=== PATIENT | female | born 1940 | race Caucasian/White ===

== ENCOUNTER 2016-05-27 22:57 | Inpatient (IN) | payer MEDICARE, MEDICAID ==
[2016-05-27 23:48] LABS: % BASOPHILS 0.9 % (0.0-2.0); % EOSINOPHILS 3.2 % (0.0-5.0); % LYMPHOCYTES 49.6 % (20.0-50.0); % MONOCYTES 13.1 % (2.0-10.0); % NEUTROPHILS 33.2 % (40.0-80.0); HEMATOCRIT 35.9 % (35.0-45.0); HEMOGLOBIN 11.7 gm/dL (11.7-16.1); MEAN CELL VOLUME 78.1 fl (81-100); MEAN CORPUSCULAR HEMOGLOBIN 25.5 pg (27.0-31.0); MEAN CORPUSCULAR HGB CONC 32.7 pg (28.0-36.0); MEAN PLATELET VOLUME 9.1 fl; NEUTROPHILE ABSOLUTE 2.5 Th/cmm (1.8-8.0); PLATELET COUNT 230 Th/cmm (150-400); RED CELL DISTRIBUTION WIDTH 19.7 % (11.5-20.0); WHITE BLOOD COUNT 7.6 Th/cmm (4.8-10.8)
--- NOTE | 2016-05-27 23:51 | ED Physician Chart ---
Chief Complaint/HPI - Patient Information Date Seen:: 05/27/16 Time Seen:: 23:48 Chief Complaint:: agitation History of Present Illness:: pt sent from md for agitation/aggressive behavior. per staff she is yelling and verbally abusive. talking continuously and pacing around nonstop. has paranoia. pt is alert and talking (very much but hard to understand) but is poor historian. pt has pacemaker. no recent palpitations or chest pain or sob. no fever. no recent illness. no curent pain. Allergies:: Allergies Allergy/AdvReac Type Severity Reaction Status Date / Time Penicillins [PCN] Allergy Verified 05/27/16 23:11 Vitals:: Vital Signs - 8 hr 05/27/16 23:00 Temp 97.9 F HR 62 RR 18 BP 135/65 O2 Sat % 95 Historian:: Patient, Medical Records Review:: Transfer documents Reviewed Review of Systems - Review of Systems General/Constitutional: No fever, No chills, No weight loss, No weakness, No diaphoresis, No edema, No loss of appetite Skin: No skin lesions, No rash, No bruising Head: No headache, No light-headedness Eyes: No loss of vision, No pain, No diplopia ENT: No earache, No nasal drainage, No sore throat, No tinnitus Neck: No neck pain, No swelling, No thyromegaly, No stiffness, No mass noted Cardio Vascular: No chest pain, No palpitations, No PND, No orthopnea, No edema Pulmonary: No SOB, No cough, No sputum, No wheezing GI: No nausea, No vomiting, No diarrhea, No pain, No melena, No hematochezia, No constipation, No hematemesis G/U: No dysuria, No frequency, No hematuria Musculoskeletal: No bone or joint pain, No back pain, No muscle pain Endocrine: No polyuria, No polydipsia Psychiatric: Prior psych history, No depression, No anxiety, No suicidal ideation, Other (agression) Hematopoietic: No bruising, No lymphadenopathy Allergic/Immuno: No urticaria, No angioedema Neurological: No syncope, No focal symptoms, No weakness, No paresthesia, No headache, No seizure, No dizziness, No vertigo Past Medical History - Past Medical History Past Medical History: HTN, Dyslipidemia, Other (pacemaker, anemia) Social History: Care Facility Surgical History: Pacemaker Psychiatricy History: Depression, Bipolar Medication: Reviewed Family Medical History - Family Member Mother History Unknown: Yes Physical Exam - Physical Examination General/Constitutional: Awake, Well-developed, well-nourished, Alert, No distress, GCS 15, Non-toxic appearing, Ambulatory Head: Atraumatic Eyes: Lids, conjuctiva normal, PERRL, EOMI Skin: Nl inspection, No skin lesions, No ecchymosis, Well hydrated, No lymphadenopathy Other Skin comments:: skin all over has thickened scarred appearance./..no current inflammation but unclear cause ENMT: External ears, nose nl, Nasal exam nl, Lips, teeth, gums nl Neck: Nontender, Full ROM w/o pain, No JVD, No nuchal rigidity, No bruit, No mass, No stridor Respiratory: Nl effort/Exclusion, Clear to Auscultation, No Wheeze/Rhonchi/Rales Cardio Vascular: RRR, No murmur, gallop, rubs, NL S1 S2 GI: No tenderness/rebounding/guarding, No organomegaly, No hernia, Normal BS's, Nondistended, No mass/bruits, No McBurney tenderness : No CVA tenderness Extremities: No tenderness or effusion, Full ROM, normal strength in all extremities, No edema, Normal digits & nails Neuro/Psych: Alert/oriented, DTR's symmetric, Normal sensory exam, Normal motor strength, Judgement/insight normal, Mood normal, Normal gait, No focal deficits Misc: normal gait, Normal back, No paraspinal tenderness Labs/Radiology/EKG Results - Lab Results Results: Laboratory Tests 05/27/16 05/27/16 05/27/16 23:10 23:35 23:35 WBC 7.6 RBC 4.60 Hgb 11.7 Hct 35.9 MCV 78.1 L MCH 25.5 L MCHC Differential 32.7 RDW 19.7 Plt Count 230 MPV 9.1 Neutrophils % 33.2 L Lymphocytes % 49.6 Monocytes % 13.1 H Eosinophils % 3.2 Basophils % 0.9 ESR Sodium 134 L Potassium 3.9 Chloride 98 Carbon Dioxide 28.6 Anion Gap 11.3 BUN 19 Creatinine 0.9 Est GFR ( Amer) TNP Est GFR (Non-Af Amer) TNP BUN/Creatinine Ratio 21.1 Glucose 112 H Calcium 9.4 Total Bilirubin 0.3 AST 19 ALT 13 Alkaline Phosphatase 83 Total Protein 7.3 Albumin 4.2 Globulin 3.1 Albumin/Globulin Ratio 1.4 Urine Source [place] Urine Color YELLOW Urine Clarity CLEAR Urine pH 6.0 Ur Specific [place] 1.020 Urine Protein NEGATIVE Urine Glucose (UA) NEGATIVE Urine Ketones NEGATIVE Urine Blood TRACE Urine Nitrate NEGATIVE Urine Bilirubin NEGATIVE Urine Urobilinogen 0.2 Ur Leukocyte Esterase TRACE H Urine RBC 2-5 Urine WBC 2-5 Ur Epithelial Cells NONE SEEN Urine Bacteria NONE SEEN Valproic Acid 05/27/16 05/27/16 23:35 23:59 WBC RBC Hgb Hct MCV MCH MCHC Differential RDW Plt Count MPV Neutrophils % Lymphocytes % Monocytes % Eosinophils % Basophils % ESR 10 Sodium Potassium Chloride Carbon Dioxide Anion Gap BUN Creatinine Est GFR ( Amer) Est GFR (Non-Af Amer) BUN/Creatinine Ratio Glucose Calcium Total Bilirubin AST ALT Alkaline Phosphatase Total Protein Albumin Globulin Albumin/Globulin Ratio Urine Source Urine Color Urine Clarity Urine pH Ur Specific [place] Urine Protein Urine Glucose (UA) Urine Ketones Urine Blood Urine Nitrate Urine Bilirubin Urine Urobilinogen Ur Leukocyte Esterase Urine RBC Urine WBC Ur Epithelial Cells Urine Bacteria Valproic Acid 80.2 - EKG Interpretations EKG Time:: 23:35 Rhythm: atial paced [place]: 42 Rate: 76 Comments:: nrml st/t waves. ED Septic Shock - . Is Septic Shock (SBP<90, OR Lactate>4 mmol\L) present?: No - <6hrs of presentation: Vital Signs: Vital Signs - 8 hr 05/27/16 23:00 Temp 97.9 F HR 62 RR 18 BP 135/65 O2 Sat % 95 Reassessment (Disposition) - Reassessment Reassessment:: macrobid 100 mg po x 1 for uti Reassessment Condition:: Unchanged, Improved - Diagnosis Diagnosis:: 1 aggressive behavior 2 possible uti - Patient Disposition Admitted to:: [facility] Condition at Disposition:: Improved
[2016-05-27 23:57] LABS: URINE BILIRUBIN NEGATIVE (NEGATIVE); URINE BLOOD TRACE (NEGATIVE); URINE COLOR YELLOW; URINE GLUCOSE (UA) NEGATIVE (NEGATIVE); URINE KETONE NEGATIVE (NEGATIVE)
[2016-05-27 23:58] LABS: URINE BACTERIA NONE SEEN /hpf (NONE SEEN); URINE EPITHELIAL CELLS NONE SEEN /lpf (FEW); URINE PROTEIN NEGATIVE (NEGATIVE); URINE UROBILINOGEN 0.2 E.U./dL (0.2 - 1.0)
[2016-05-28 00:22] LABS: ALB/GLOB RATIO 1.4 (1.0-1.8); ALKALINE PHOSPHATASE 83 U/L (34-104); ANION GAP 11.3 (7.0-16.0); BILIRUBIN,TOTAL 0.3 mg/dL (0.3-1.0); BUN - UREA NITROGEN 19 mg/dL (7-25); BUN/CREATININE RATIO 21.1; CALCIUM SERUM 9.4 mg/dL (8.6-10.3); CARBON DIOXIDE 28.6 mEq/L (21.0-31.0); CHLORIDE 98 mEq/L (98-107); CREATININE - SERUM 0.9 mg/dL (0.6-1.2); GLUCOSE 112 mg/dL (70-105); POTASSIUM SERUM 3.9 mEq/L (3.5-5.1); SGOT 19 U/L (13-39); SGPT/ALT 13 U/L (7-52); SODIUM SERUM 134 mEq/L (136-145)
[2016-05-28 04:54] VITALS: BP 128/78
[2016-05-28] MEDS ORDERED: Maalox 30 mL Cup PO PRN (04:56)
[2016-05-28] MEDS ORDERED: Magnesium Hydroxide (MOM) 30 mL UDC PO PRN (05:00)
[2016-05-28] MEDS: Aspirin 81mg Chewable Tab PO SCH (09:02)
[2016-05-28] MEDS: Ferrous Sulfate 325 MG TAB PO SCH (09:02)
[2016-05-28] MEDS: Multivitamin Tab PO SCH (09:03)
--- NOTE | 2016-05-29 01:17 | Psychosocial Evaluation ---
CHIEF COMPLAINT: "Why am I in the hospital?" HISTORY OF PRESENT ILLNESS: The patient is a 76-year-old female with a history of bipolar disorder, was sent from a residential facility for increased agitation, paranoia, yelling episodes, has not been sleeping well. The patient has been taking her medications most of the time. The patient states she is upset because she is in a psychiatric hospital, but she acknowledges that she has been having episodes of anxiety and she admits that she has racing thoughts. PAST PSYCHIATRIC HISTORY: Bipolar disorder, multiple psychiatric hospitalizations. PAST MEDICAL HISTORY: As per H and P. PSYCHOSOCIAL HISTORY: The patient resides in a residential facility and requires complete care. MENTAL STATUS EXAMINATION: The patient was sitting in a chair. Her speech was fast and pressured. She has obvious psychomotor restlessness. The patient appears to be guarded and paranoid, but she has no auditory hallucinations. She is oriented to time, place and person, does not appear to have any cognitive impairment, but her insight is somewhat limited. PATIENT'S STRENGTH: The patient is passively accepting treatment. PATIENT'S WEAKNESS: Lack of insight. ASSESSMENT: Bipolar disorder, manic with psychosis. MEDICAL: As per medical history and History and Physical. PLAN: We will admit the patient for hospitalization. We will start individual and group therapy, assess psychopharmacological intervention. ESTIMATED LENGTH OF STAY: 7 days. CRITERIA FOR DISCHARGE: Improved condition, no agitation, hopefully no paranoia and safe disposition and outpatient treatment plan. [facility]# [id number]
--- NOTE | 2016-05-29 06:38 | Consultation ---
INTERNAL MEDICINE CONSULT REFERRING PHYSICIAN: Dr. Huizar. REASON FOR CONSULT: Medical management of hypertension, CAD, anemia. HISTORY OF PRESENT ILLNESS: This is a 76-year-old female, who has a history of CAD, status post stent placement, history of arrhythmia, status post pacemaker placement, hypertension, anemia, psych disorder/bipolar disorder, who was transferred from [facility] to the ER secondary to increased agitation and verbal abusiveness. The patient has been admitted to [facility] for further management and care. The patient is somewhat of a poor historian, but denies any chest pain, any shortness of breath, any palpitations, any fever, chills, or any UTI symptomatology. Pertinent findings in ER include a mild UTI. PAST MEDICAL HISTORY: As noted above. PAST SURGICAL HISTORY: She apparently has had 2 pacemaker placements, but could not remember the dates. She also states that she had 2 stent placements and also could not remember the year of placement, as above. FAMILY HISTORY: Likely noncontributory. SOCIAL HISTORY: Denies any tobacco, ETOH, or illicit drug usage. Lives in a residential facility. ALLERGIES: ALLERGIC TO PENICILLINS. HOME MEDICATIONS: Tylenol 325 q. 4 p.r.n., aspirin 81 every day, bisacodyl 10 mg every day per rectum for constipation, Depakote 500 mg every day, docusate sodium 100 mg every day, iron sulfate 325 mg every day, Ativan 0.5 q. 6 p.r.n. for anxiety, losartan/hydrochlorothiazide 100/25 every day, milk of magnesia p.r.n. for GI upset, Seroquel 25 b.i.d., simvastatin 40 q. p.m. REVIEW OF SYSTEMS: CONSTITUTIONAL: She denies any fever or chills. CARDIOVASCULAR: No chest pain, no palpitations. PULMONARY: No cough, no phlegm production, no shortness of breath. GASTROINTESTINAL: No bowel habit changes. GENITOURINARY: No bladder habit changes including no dysuria or hematuria. NEUROLOGIC: No changes in vision, no syncope, no headaches. PHYSICAL EXAMINATION: VITAL SIGNS: Temperature 98.0, pulse 76, BP 128/78, respirations 20, satting 99% on room air. GENERAL: She is a well-developed, moderately obese female, lying in bed. She is asleep, but arousable, awake, alert and oriented x 2, able to answer simple questions appropriately. HEAD AND NECK: Normocephalic, atraumatic. Pupils are reactive to light. CARDIAC: Regular rate and rhythm with distant sounds. LUNGS: Clear to auscultation bilaterally. ABDOMEN: Soft, supple, nontender, nondistended, normoactive bowel sounds. EXTREMITIES: Lower extremities: No pedal edema. NEUROLOGIC: Grossly intact, although full exam cannot be done at this time. LABORATORY DATA: H and H with an MCV of 78, white count 7.6. Sodium 134, glucose 112, otherwise Chem-20 was within normal limits. UA shows trace leukocyte esterase, 2-5 rbc's, 2-5 wbc's. and valproic acid is 80.2. DIAGNOSTICS: EKG, atrially paced rhythm at a rate of 76. IMPRESSION AND PLAN: 1. Acute psych exacerbation. 2. History of bipolar disease. 3. History of coronary artery disease, status post stent placement-clinically asymptomatic. 4. History of arrhythmia, status post pacemaker placement. 5. History of essential hypertension. 6. History of anemia. 7. Urinary tract infection. PLAN: The patient has been admitted to [facility] for further management and care. The patient will be kept on her current medications as scheduled. I will start her on Cipro 250 mg p.o. b.i.d. for 5 days. The patient will be monitored on a daily basis. [facility]# [id number] APRIL
[2016-05-29] MEDS: Aspirin 81mg Chewable Tab PO SCH (09:06)
[2016-05-29] MEDS: Ferrous Sulfate 325 MG TAB PO SCH (09:10)
[2016-05-29] MEDS: Multivitamin Tab PO SCH (09:11)
--- NOTE | 2016-05-30 01:43 | Progress Notes ---
SUBJECTIVE: The patient was seen, discussed with staff, chart reviewed. Still restless, pacing on the unit, talking fast, continues to have anger outburst episodes, where she requires redirection by staff. The patient required being given emergency medications. Her impulsivity is still high and she is still on the manic side. ASSESSMENT: The patient continues to require hospitalization. PLAN: We will continue to monitor closely. Encourage the patient to remain compliant with medications. [facility]# [id number]
[2016-05-30] MEDS: Ferrous Sulfate 325 MG TAB PO SCH (08:48)
[2016-05-30] MEDS: Multivitamin Tab PO SCH (08:48)
[2016-05-30] MEDS: Aspirin 81mg Chewable Tab PO SCH (08:48)
--- NOTE | 2016-05-30 22:53 | Progress Notes ---
SUBJECTIVE: The patient was seen, discussed with staff, chart reviewed. Still labile, intrusive, anxious, restless at times, some agitation. Continues to require redirection by staff, but anger outbursts are less frequent and she is compliant with her medication. Her ____ improved. ASSESSMENT: The patient is still on a manic side. PLAN: We will continue stabilization, continue hospitalization, continue to monitor closely. ESTIMATED LENGTH OF STAY: 7 days. [facility]# [id number]
[2016-05-31] MEDS: Multivitamin Tab PO SCH (08:37)
[2016-05-31] MEDS: Ferrous Sulfate 325 MG TAB PO SCH (08:38)
[2016-05-31] MEDS: Aspirin 81mg Chewable Tab PO SCH (08:38)
--- NOTE | 2016-05-31 22:56 | Progress Notes ---
SUBJECTIVE: The patient was seen, discussed with staff, chart reviewed. Still somewhat restless, anxious. Continues to have some episodes of agitation. Her speech is fast and pressured and her affect is labile. The patient's insight is poor, judgment remains impaired. The patient is oriented to time, place and person. ASSESSMENT: The patient continues to be on a manic side. PLAN: We will continue hospitalization. Continue supportive measures. Depakote level was 80, within therapeutic range. JOB# [id number]
[2016-06-01] MEDS: Multivitamin Tab PO SCH (08:32)
[2016-06-01] MEDS: Aspirin 81mg Chewable Tab PO SCH (08:32)
[2016-06-01] MEDS: Ferrous Sulfate 325 MG TAB PO SCH (08:42)
--- NOTE | 2016-06-02 01:14 | Progress Notes ---
TIME PATIENT SEEN: 11 a.m. SUBJECTIVE: Staff was spoken to. The patient is interviewed. Mood is a little less irritable. Affect is appropriate. The patient is stating that she has been complying with the medications and has been able to tolerate. No side effects to the medications are noted at this time. The patient, however, is stating that she is too sleepy with the medications at nighttime and hence wants to request a change in the medication, so Seroquel has been changed from 25 mg twice a day to 25 mg at bedtime and the patient is going to be followed up with supportive therapy and the patient has been on Depakote and hence the Depakote level is going to be requested today. JOB# [id number]
[2016-06-02] MEDS: Ferrous Sulfate 325 MG TAB PO SCH (08:36)
[2016-06-02] MEDS: Multivitamin Tab PO SCH (08:36)
[2016-06-02] MEDS: Aspirin 81mg Chewable Tab PO SCH (08:36)
--- NOTE | 2016-06-02 23:53 | Progress Notes ---
PSYCHIATRIC PROGRESS NOTE TIME SEEN: 9:30 a.m. Staff was spoken to. The patient is interviewed. Mood is noted to be anxious. Affect is appropriate. Not suicidal or homicidal. Insight and judgment noted to be improving. Impulse control seems to be fair. No side effects to the medications are noted. The patient is currently on Seroquel 25 mg at bedtime and the patient is also getting the Depakote 500 mg in the morning. With these medications, the patient's mood is noted to be under control. Mood swings are under control. The patient is not presenting with any threats to harm self or others, and hence it is decided to discharge the patient today for followup on outpatient basis. JOB# [id number]
[2016-06-03] MEDS: Aspirin 81mg Chewable Tab PO SCH (08:37)
[2016-06-03] MEDS: Multivitamin Tab PO SCH (08:37)
[2016-06-03] MEDS: Ferrous Sulfate 325 MG TAB PO SCH (08:38)
--- NOTE | 2016-06-04 04:31 | Progress Notes ---
TIME PATIENT SEEN: 7:15 a.m. SUBJECTIVE: Staff was spoken to. The patient is interviewed. Mood is noted to be irritable. Affect is constricted. Insight and judgment are very much impaired. The patient is very demanding. Coping skills are noted to be very poor. The patient is hyperverbal. The patient has no insight into her illness. The patient is stating that she has lot of things to take care of than being in here. The patient is very impulsive and has been having difficult time to redirect. ASSESSMENT: The patient is still impulsive. PLAN: To increase the dose on the Depakote to 250 mg in the morning and then continue 500 mg at bedtime and increase the dose on the Seroquel to 50 mg and follow the patient with supportive therapy. The patient is not ready to be discharged to a lower level of care yet. JOB# [id number]
[2016-06-04] MEDS: Aspirin 81mg Chewable Tab PO SCH (08:44)
[2016-06-04] MEDS: Multivitamin Tab PO SCH (08:44)
[2016-06-04] MEDS: Ferrous Sulfate 325 MG TAB PO SCH (08:44)
--- NOTE | 2016-06-05 02:13 | Progress Notes ---
PSYCHIATRIC PROGRESS NOTE TIME PATIENT SEEN: 11:00 a.m. SUBJECTIVE: Staff was spoken to. The patient is interviewed. Mood is noted to be irritable. Affect is constricted. The patient is demanding that she should be discharged. The patient's coping skills are noted to be still poor. No side effects to the medications are noted. The patient has been having difficult time to cope with the stress. ASSESSMENT: The patient is still impulsive and intrusive. PLAN: To continue the patient with supportive therapy and encouraged the patient to verbalize the concerns rather than to act out. JOB# [id number]
[2016-06-05] MEDS: Ferrous Sulfate 325 MG TAB PO SCH (08:03)
[2016-06-05] MEDS: Aspirin 81mg Chewable Tab PO SCH (08:03)
[2016-06-05] MEDS: Multivitamin Tab PO SCH (08:03)
--- NOTE | 2016-06-05 20:34 | Discharge Summary ---
IDENTIFYING DATA: The patient is a 76-year-old woman with a diagnosis of bipolar disorder and was sent from the nursing facility for increase in agitation, ____ screaming, and yelling. CHIEF COMPLAINT: "I should not have been here." HISTORY OF PRESENT ILLNESS: Please refer to the 05/28/[address] Watkins who was covering for me. The patient had the physical examination done by Dr. Macias and is noted to be significant for coronary artery disease, history of arrhythmia and essential hypertension and urinary tract infection. HOSPITAL COURSE AND RESPONSE TO TREATMENT: The patient has been observed on the inpatient unit, provided with supportive psychotherapy. The patient's blood work has been reviewed by Dr. Macias. The patient has been encouraged to participate in the groups and verbalize the concerns. The patient's sodium is noted to be 134. Valproic acid level is noted to be 80.2, and the patient has been closely monitored and was noted to be doing fairly well. The patient was finally discharged on 06/05/2016 with recommendation that she is going to be seeking treatment on an outpatient basis at [facility] by Dr. Lindsey. MENTAL STATUS EXAMINATION: At the time of discharge is noted to be stable. CONDITION: The patient is not noted to be suicidal or homicidal at the time of discharge. DIAGNOSES AT THE TIME OF DISCHARGE: AXIS I: Bipolar disorder. AXIS II: None. AXIS III: Hypertension and coronary artery disease. AFTERCARE PLAN: The patient is discharged for followup on outpatient basis. PROGNOSIS: At the time of discharge noted to be fair with the treatment. [facility]# [id number]
== END 2016-06-05 20:00 | DRG 885 ==
LOC: ER 22:57 → GERO 05-28 01:10
PROVIDERS: ADMIT Psychiatry & Neurology Psychiatry; ATTEND Psychiatry & Neurology Psychiatry
DX: F31.2 Bipolar disorder, current episode manic severe with psychotic features (principal); D64.9 Anemia, unspecified; N39.0 Urinary tract infection, site not specified; I10 Essential (primary) hypertension; E78.5 Hyperlipidemia, unspecified; I25.10 Atherosclerotic heart disease of native coronary artery without angina pectoris; F29 Unspecified psychosis not due to a substance or known physiological condition; Z95.0 Presence of cardiac pacemaker; Z88.0 Allergy status to penicillin; Z79.82 Long term (current) use of aspirin; Z95.5 Presence of coronary angioplasty implant and graft
CPT/HCPCS: 36415-UA; 80053-TC; 80164-TC; 81001-TC; 85025-TC; 85652-TC; 90899; 93005; A4216; G0410; J1200; J2060; Z7610